=== PATIENT | male | born 1990 | race Caucasian/White ===

== ENCOUNTER 2020-01-09 02:59 | Emergency (ER) | payer SELFPAY ==
[~2020-01-09] VITALS: Ht 177.8 cm; Wt 90.7 kg
[2020-01-09 03:04] VITALS: Ht 177.8 cm; Wt 90.7 kg
[2020-01-09 03:40] VITALS: BP 151/79
== END 2020-01-09 03:35 | disposition other institution (70) ==
LOC: ED 02:59
DX: S02.5XXA Fracture of tooth (traumatic), initial encounter for closed fracture (principal); S00.81XA Abrasion of other part of head, initial encounter; S00.31XA Abrasion of nose, initial encounter; S00.01XA Abrasion of scalp, initial encounter; W22.8XXA Striking against or struck by other objects, initial encounter; Y93.89 Activity, other specified; Y92.89 Other specified places as the place of occurrence of the external cause; Y99.8 Other external cause status
CPT/HCPCS: 90715

== ENCOUNTER 2020-01-09 02:59 | Emergency (ER) | payer OTHER | END 2020-01-09 03:35 | disposition other institution (70) | LOC: ED 02:59 | DX: Z02.89 Encounter for other administrative examinations (principal) ==